=== PATIENT | female | born 1995 | race Caucasian/White ===

== ENCOUNTER 2016-07-10 11:52 | Emergency (ER) | payer MEDICAID ==
--- NOTE | 2016-07-10 13:46 | EDPRACDOC ---
- General Information Stated Complaint: ABSCESS LEFT LOWER ABD Time Seen by Provider: 07/10/16 13:42 Information Source: Patient Home Medications: Home Medications Ketorolac Tromethamine 10 mg PO Q8H PRN #15 tab 07/10/16 Sulfamethoxazole/Trimethoprim [Bactrim Ds Tablet] 1 tab PO BID #14 tab 07/10/16 Allergies/Adverse Reactions: Allergies Allergy/AdvReac Type Severity Reaction Status Date / Time amoxicillin [Amoxicillin] Allergy Hives* Verified 11/21/15 11:16 - History of Present Illness Onset: 1 week HPI: R suprapubic abscess x 1 week. C/o redness, pain. Denies fever, abd pain, n/v/d , changes in bowel or bladder, red streaking. Location: Reports: Abdomen Relevent History Of: Reports: None Prior Abscess: Reports: None Pain: Reports: Mild Quality: Reports: Painful, Red Associated Signs & Symptoms: Reports: None ED Past Medical History - History Reviewed Yes Nurses notes reviewed and agree except as marked - Social Medical History Smoking Status: Never smoker ETOH: None Substance Abuse: None EDM Review of Systems - Review of Systems Constitutional: No Symptoms Reported. negative: Fever, Chills, Weakness, Fatigue, Loss of Appetite Respiratory: No Symptoms Reported. negative: Cough, Brassy Cough, Barky Cough, Shortness of Breath, Wheezing, Hemoptysis Cardiovascular: No Symptoms Reported. negative: Chest Pain, Palpitations, Syncope, Edema, Orthopnea, PND, Skin Mottling, Cyanosis Gastrointestinal: No Symptoms Reported. negative: Pain, Constipation, Nausea, Vomiting, Diarrhea, Melena, Formula Intolerance Genitourinary: No Symptoms Reported. negative: Dysuria, Hematuria, Frequency, Discharge, Bleeding, Testicular Pain, Neurological: No Symptoms Reported. negative: Headache, Dizziness, Seizure, Numbness, Weakness, Speech Difficulty, Gait Difficulty Musculoskeletal: No Symptoms Reported. negative: Neck, Chestwall, Ribs, Back, Shoulder, Arm, Elbow, Forearm, Wrist, Hand, Pelvis, Hip, Femur, Knee, Leg, Ankle , Foot Integumentary: Wound Allergic/Immunologic: No Symptoms Reported. negative: Hives, Itching Hematologic: No Symptoms Reported. negative: Lymphadenopathy, Easy Bruising, Easy Bleeding Psychiatric: No Symptoms Reported. negative: Anxiety, Depression, Hallucinations, Insomnia, Suicidal - Physical Exam Constitutional: Alert Oriented to: Time, Person, Place Last recorded Vital Signs: Oxygen Pulse Oxygen Saturation O2 Device Oxygen Flow Rate Fraction of Inspired Oxygen ( FIO2) - HEENT Head: Normal ( normocephalic) - Respiratory/Cardiovascular Respiratory: Normal - CTA (BBS clear to auscultation without adventitious sounds ) Cardiovascular: Normal (RRR without murmur, gallop or rub) - GI Auscultation: Normal (NABS) Palpation: Normal (Soft,No rebound or guarding, non distended) Tenderness: Non tender - Integumentary Skin: Normal, Warm, Dry Lymphatics: Normal (no adenopathy) - Neurologic Memory Impaired: Normal Motor Function: Normal (Normal tone, Pulses 2+ No cyanosis or edema, FROM) Mood Description: Normal Perception: Normal ED Abscess/Mass Exam - Integumentary Skin: Normal, Warm, Dry Mass: Size (1cm x 1cm), Red, Tender Lymphatics: Normal (No Adenopathy) Body Image: 1 - abscess no drainable area - Differential Diagnosis Abscess, Cellulitis Decision Time to Discharge: 13:45 - Departure Disposition: Home Condition: Good Final Diagnosis: Soft tissue abscess of suprapubic region Instructions: Abscess (ED) Education/Counseling Given To: Patient Education/Counseling Given Regarding: Diagnosis, Treatment, Follow Up Referrals: Erickson Engel PA [Primary Care Provider] - One Week Prescriptions: Ketorolac Tromethamine 10 mg PO Q8H PRN #15 tab PRN Reason: Pain Sulfamethoxazole/Trimethoprim [Bactrim Ds Tablet] 1 tab PO BID #14 tab Additional Instructions: Keep wound clean and dry, apply warm compresses to affected area 20 mins at a time 4 - 5 times daily, return to the ED for any worsening symptoms or concerns.
[2016-07-10 13:51] VITALS: BP 144/76; PULSE 82; TEMP 98.1; BMI 17.6
== END 2016-07-10 13:54 | disposition home or self-care (01) ==
LOC: EDMC 11:52
DX: L02.211 Cutaneous abscess of abdominal wall (principal)
CPT/HCPCS: 99282